=== PATIENT | male | born 1995 | race Caucasian/White ===

== ENCOUNTER 2019-08-04 23:58 | Emergency (ER) | payer SELFPAY ==
[~2019-08-04] VITALS: Ht 175.3 cm; Wt 77.3 kg
[2019-08-05 00:21] VITALS: BP 111/74; TEMP 99
[2019-08-05 02:02] VITALS: PULSE 68
== END 2019-08-05 02:02 | disposition home or self-care (01) ==
LOC: COL.ER 23:58
DX: S60.222A Contusion of left hand, initial encounter (principal); S60.221A Contusion of right hand, initial encounter; F17.210 Nicotine dependence, cigarettes, uncomplicated; W22.8XXA Striking against or struck by other objects, initial encounter; Y92.009 Unspecified place in unspecified non-institutional (private) residence as the place of occurrence of the external cause

== ENCOUNTER 2022-08-01 20:43 | Emergency (ER) | payer SELFPAY ==
[~2022-08-01] VITALS: Ht 175.3 cm; Wt 68.2 kg
[2022-08-01 20:46] VITALS: TEMP 97.4
[2022-08-01 21:12] VITALS: BP 110/70; PULSE 76
== END 2022-08-01 21:12 | disposition home or self-care (01) ==
LOC: COL.ER 20:43
DX: J06.9 Acute upper respiratory infection, unspecified (principal); Z28.310 Unvaccinated for COVID-19